=== PATIENT | female | born 1980 | race Caucasian/White ===

== ENCOUNTER 2019-08-31 08:36 | Emergency (ER) | payer BC ==
[2019-08-31] MEDS ORDERED: Ondansetron 4 mg VIAL 2 MG/ML 2 ml VIAL IV ONE (08:55)
[2019-08-31] MEDS ORDERED: Morphine 4 MG/ML VIAL (1 ml) IV ONE (08:55)
[2019-08-31] MEDS ORDERED: NS 0.9% 1000 ml BAG 1,000 ML IV ONE (09:06)
[2019-08-31 09:13] LABS: Urine Appearance Cloudy; Urine Bilirubin Negative (Negative); Urine Blood Negative (Negative); Urine Color Yellow; Urine Glucose Negative (Negative); Urine Ketones Negative (Negative); Urine Nitrite Negative (Negative); Urine Protein Negative (Negative); Urine Specific Gravity 1.014 (1.010-1.030); Urine Urobilinogen Negative (Negative)
[2019-08-31 09:14] LABS: ABS Eosinophils 0.1 10^3/ul (0-0.6); ABS Lymphocytes 1.4 10^3/ul (1.0-4.8); ABS Monocytes 0.5 10^3/ul (0-0.8); Eosinophil % 1.8 %; Hematocrit 42 % (35-47); Hemoglobin 14.5 g/dL (12.0-16.0); Lymphocyte % 22.1 %; Mean Corpuscular HGB Conc 35 g/dL (31-36); Mean Corpuscular Hemoglobin 30 pg (27-31); Mean Corpuscular Volume 85 fL (80-97); Mean Platelet Volume 8.2 fL (7.4-10.4); Nucleated Red Blood Cells % 0.1; Platelet Count 212 10^3/uL (150-450); Red Blood Count 4.93 10^6 /uL (3.70-4.87); Red Cell Distribution Width 14 % (10-15); White Blood Count 6.2 10^3/uL (3.5-10.8)
[2019-08-31 09:31] LABS: ALT 61 U/L (7-52); AST 45 U/L (13-39); Albumin 4.3 g/dL (3.2-5.2); Albumin/Globulin Ratio 1.1 (1-3); Alkaline Phosphatase 187 U/L (34-104); Amylase 47 U/L (29-103); Anion Gap 8 mmol/L (2-11); BUN/Creatinine Ratio 10.2 (8-20); Blood Urea Nitrogen 9 mg/dL (6-24); C Reactive Protein 1.66 mg/L (<8.01); CO2 Carbon Dioxide 24 mmol/L (22-32); Calcium 9.6 mg/dL (8.6-10.3); Chloride 103 mmol/L (101-111); EGFR African American 86.6 (>60); EGFR Non-African American 71.5 (>60); Globulin 3.8 g/dL (2-4); Glucose 98 mg/dL (70-100); Potassium 3.6 mmol/L (3.5-5.0); Sodium 135 mmol/L (135-145); Total Protein 8.1 g/dL (6.4-8.9)
[2019-08-31 09:36] LABS: HCG Pregnancy < 0.60 mIU/mL
[2019-08-31 10:57] VITALS: BP 128/70
== END 2019-08-31 10:53 | disposition home or self-care (01) ==
LOC: ED 08:36